=== PATIENT | female | born 1990 | race American Indian/Alaskan Native ===

== ENCOUNTER 2018-10-15 17:01 | Emergency (ER) | payer MEDICARE ==
--- NOTE | 2018-10-15 17:37 | Emergency Department Report ---
Chief Complaint: Abdominal Pain Stated Complaint: PSYCH Time Seen by Provider: 10/15/18 17:31 - HPI History of Present Illness: This is a 27 y.o. female that presents to the ER with concerns of . States stomach is larger than normal. Patient is at [facility] and told to come in for further evaluation. Patient states she is hearing voices but they are nice. Denies HI/SI. LMP August 2018 Denies vaginal bleeding, vaginal discharge, abdominal pain, or low back pain. - Exam Vital Signs: Vital Signs 10/15/18 17:30 Temperature 98.5 F Pulse Rate 109 H Respiratory 16 Rate Blood Pressure 115/73 O2 Sat by Pulse 97 Oximetry MSE screening note: Focused history and physical exam performed. Due to findings the following was ordered: Labs Main ED for further evaluation. ED Disposition for MSE Condition: Stable Instructions: Abdominal Pain (ED)
[2018-10-15 17:59] LABS: Basophils % (Auto) 0.6 % (0.0-1.8); Eosinophils # (Auto) 0.2 K/mm3 (0.0-0.4); Eosinophils % (Auto) 2.6 % (0.0-4.3); Hematocrit 31.3 % (30.3-42.9); Lymphocytes # (Auto) 2.3 K/mm3 (1.2-5.4); Lymphocytes % (Auto) 38.9 % (13.4-35.0); Mean Corpuscular HGB Conc 32 % (30-34); Mean Corpuscular Volume 82 fl (79-97); Monocytes # (Auto) 0.7 K/mm3 (0.0-0.8); Monocytes % (Auto) 12.7 % (0.0-7.3); Platelet Count 340 K/mm3 (140-440); Red Blood Count 3.83 M/mm3 (3.65-5.03); Red Cell Distribution Width 16.8 % (13.2-15.2)
[2018-10-15 18:12] LABS: Bilirubin,Urine NEG (Negative); Blood,Urine NEG (Negative); Color,Urine Yellow (Yellow); Protein,Urine <15 mg/dL mg/dL (Negative); WBC,Urine < 1.0 /HPF (0.0-6.0)
[2018-10-15 18:20] LABS: BUN/Creatinine Ratio 23; Blood Urea Nitrogen 14 mg/dL (7-17); Calcium 8.7 mg/dL (8.4-10.2); Hemolysis Index 3
[2018-10-15 18:21] LABS: Amphetamine Screen,Urine PRESUMPTIVE NEGATIVE; Benzodiazepines Screen,Urine PRESUMPTIVE NEGATIVE; Cannabinoid Screen,Urine PRESUMPTIVE NEGATIVE; Cocaine Screen,Urine PRESUMPTIVE NEGATIVE; Methadone Screen,Urine PRESUMPTIVE NEGATIVE; Opiate Screen,Urine PRESUMPTIVE NEGATIVE
--- NOTE | 2018-10-15 20:28 | Emergency Department Report ---
HPI - General Chief Complaint: Abdominal Pain Time Seen by Provider: 10/15/18 17:31 - HPI HPI: 27-year-old -[place] female presents to the emergency department from the [facility] with complaint of concern for being . Patient says that she has some sensation of something "moving in my tummy" and thinks that she has either gained weight over her abdomen has gotten larger and thinks that must be related to being . The patient is at the psychiatric facility secondary to "hearing voices" but is unable to give any particular diagnosis. She last had a menstrual cycle sometime in August, last month. She admits to some mild vaginal spotting. She has not taken anything for her symptoms prior to arrival. ED Past Medical Hx - Past Medical History Hx Psychiatric Treatment: Yes (HEARING VOICES) - Surgical History Past Surgical History?: No - Social History Smoking Status: Never Smoker Substance Use Type: None ED Review of Systems ROS: Stated complaint: PSYCH Other details as noted in HPI Comment: All other systems reviewed and negative Constitutional: denies: chills, fever Eyes: denies: eye pain, vision change ENT: denies: ear pain, throat pain Respiratory: denies: cough, shortness of breath Cardiovascular: denies: chest pain, palpitations Gastrointestinal: abdominal pain. denies: vomiting Genitourinary: denies: dysuria, discharge Musculoskeletal: denies: back pain, arthralgia Skin: denies: rash, lesions Neurological: denies: headache, weakness Physical Exam - Physical Exam Vital Signs: Vital Signs 10/15/18 17:30 Temperature 98.5 F Pulse Rate 109 H Respiratory 16 Rate Blood Pressure 115/73 O2 Sat by Pulse 97 Oximetry Physical Exam: GENERAL: The patient is well-developed well-nourished. HEENT: Normocephalic. Atraumatic. Patient has moist mucous membranes. EYES: Extraocular motions are intact. NECK: Supple. Trachea is midline. CHEST/LUNGS: Clear to auscultation. There is no respiratory distress noted. HEART/CARDIOVASCULAR: Regular. There is no tachycardia. There is no obvious murmur. ABDOMEN: Abdomen is soft, nontender. Patient has normal bowel sounds. There is no abdominal distention. SKIN: Skin is warm and dry. NEURO: The patient is awake, alert, and cooperative. The patient has no focal neurologic deficits. The patient has normal speech. MUSCULOSKELETAL: There is no tenderness or deformity. There is no limitation range of motion. There is no evidence of acute injury. ED Course Vital Signs 10/15/18 17:30 Temperature 98.5 F Pulse Rate 109 H Respiratory 16 Rate Blood Pressure 115/73 O2 Sat by Pulse 97 Oximetry ED Medical Decision Making - Lab Data Result diagrams: 10/15/18 17:47 10/15/18 17:47 - Radiology Data Radiology results: image reviewed interpreted by me: Abdominal x-ray shows nonspecific nonobstructive bowel gas. - Medical Decision Making Patient presents with a complaint of some abnormal sensation in her abdomen, some weight gain, and concern for . Labs have been unremarkable including negative test. Abdominal x-ray shows nonspecific bowel gas. patient does not appear to be in any significant discomfort and is asking for something to eat. the patient is unable to tell me exactly how much weight she has gained and over what time. vital signs stable including being afebrile. Patient appears safe for discharge home at this time. She has been encouraged to follow up with primary care and will return to the ER with any worsening of her symptoms or any acute distress. - Differential Diagnosis , colitis, UTI Critical Care Time: No Critical care attestation.: If time is entered above; I have spent that time in minutes in the direct care of this critically ill patient, excluding procedure time. ED Disposition Clinical Impression: Medical clearance for psychiatric admission Abdominal pain Qualifiers: Abdominal location: generalized Qualified Code(s): R10.84 - Generalized abdominal pain Disposition: DC/TX-[id number] PSY HOSP/PSY UNIT Is pt being admited?: No Condition: Stable Instructions: Abdominal Pain (ED) Additional Instructions: Please follow up with a primary care physician as soon as you are able to do so. Return to the emergency Department with any worsening of your symptoms or any acute distress. Referrals: [facility] [Outside] - 3-5 Days RUSTAM GLEASON MD [Staff Physician] - 3-5 Days Time of Disposition: 21:42
--- NOTE | 2018-10-15 21:55 | XRay Report ---
PROCEDURE: XR ABDOMEN 2V TECHNIQUE: Abdominal series, including supine and upright AP views. HISTORY: Abd pain COMPARISONS: None . FINDINGS: Bowel gas pattern: Nonobstructive . Masses or calcifications: None . Bony structures: No significant abnormality . Pneumoperitoneum: None . Other: No significant findings . IMPRESSION: No acute abnormality. This document is electronically signed by Tanner Adams MD., October 15 2018 09:53:33 PM ET
[2018-10-15 22:04] VITALS: BP 108/70
== END 2018-10-15 22:04 ==
LOC: ED 17:01
DX: R10.84 Generalized abdominal pain (principal); R44.0 Auditory hallucinations
CPT/HCPCS: 36415; 74019; 80048; 80307; 81001; 84703; 85025; 99283; G0480; 80320